=== PATIENT | female | born 1975 | race Caucasian/White ===

== ENCOUNTER 2016-07-30 15:01 | Emergency (ER) | payer BC, MEDICAID ==
[~2016-07-30] VITALS: Wt 51.5 kg
[~2016-07-30 15:01] MED LIST: PREN1TAB9
[2016-07-30] MEDS ORDERED: RANI150T9 PO (15:31)
[2016-07-30] MEDS ORDERED: BEN50 PO (15:31)
[2016-07-30] MEDS ORDERED: PRED20TA PO (15:31)
--- NOTE | 2016-07-30 15:56 | ERD ---
ER Documentation Chief Complaint Date/Time DATE: 07/30/16 TIME: 15:54 Chief Complaint GENERALIZED RASH FOR THE PAST FEW DAYS. NO STRIDOR OR SOB NOTED. HPI 40-year-old female comes in with a generalized rash she has had for 3 days, patient states that she recently took amoxicillin that she was having dental pain. She took that for approximately a week and began to have a rash that is generalized, pruritic, she has not tried anything for this type of calamine lotion. She states that she ate some to his daughter's the night that it started, she has had this before in the past, has never had any throaty according allergies in the past. No shortness of breath with this. ROS All systems reviewed and are negative except as per history of present illness. Medications Home Meds Active Scripts Diphenhydramine Hcl* (Benadryl*) 50 Mg Cap, 50 MG PO Q6 Y for ITCHING, #30 CAP Prov:JUANITA SHIRLEY PA-C 07/30/16 Ranitidine Hcl* (Zantac*) 150 Mg Tablet, 150 MG PO BID Y for rash, #10 TAB Prov:JUANITA SHIRLEY PA-C 07/30/16 Prednisone* (Prednisone*) 20 Mg Tab, 40 MG PO DAILY for 5 Days, TAB Prov:JUANITA SHIRLEY PA-C 07/30/16 Reported Medications Vits W-Ca,Fe,Fa(<1MG) ( #2) 1 Tab Tablet 02/01/13 Allergies Allergies: Coded Allergies: No Known Allergy (Unverified , 09/06/13) PMhx/Soc History of Surgery: No Anesthesia Reaction: No Hx Neurological Disorder: No Hx Alcohol Use: No Hx Substance Use: No Hx Tobacco Use: No Physical Exam Vitals Vital Signs Date Time Temp Pulse Resp B/P Pulse Ox O2 Delivery O2 Flow Rate FiO2 07/30/16 15:13 98.8 69 20 111/64 98 Physical Exam General: Well-developed, well-nourished. The patient appears in no acute distress. HEENT: Head is normocephalic, atraumatic. No scleral icterus. Pupils are equal , round, and reactive. Oral mucous membranes are moist. No pharyngeal erythema. Neck: Supple. Nontender. Lungs: Clear to auscultation. Normal air movement. Heart: Regular rate and rhythm. S1 and S2 are normal. No murmurs, gallops, or rubs. Abdomen: Soft, nontender, nondistended. Bowel sounds are normoactive. Extremities: No clubbing or cyanosis. Normal pulses. Moving extremities x 4. No weakness. Neurologic: Alert and oriented 3. No focal deficits. Skin: Generalized rash, there are excoriations in her thighs, other areas have hives on her trunk Procedures/MDM 40-year-old female comes in with a generalized allergic reaction, without evidence of shortness of breath or any respiratory distress. She does have hives in various areas as well as excoriations from scratching, there is no evidence of any infectious process. She has been taking amoxicillin for the past week, I have asked her to discontinue this as it may be a source of her allergy reaction. Patient's allergic symptoms have stabilized while they have been evaluated in the department without evidence of persistent systemic reaction. Patient is healthy and capable of treating and responding to rebound reactions. Patient appropriate for outpatient allergy work up and treatment. Departure Diagnosis: Primary Impression: Allergic reaction Condition: Good Patient Instructions: Allergic Reaction, Other (General) Additional Instructions: Llame al doctor MAANA y arnoldo diane KIRK PARA DENTRO DE 1-2 CORREA.Dgale a la secretaria que nosotros le instruimos hacer esta kirk.Avise o llame si perez condicin se empeora antes de la kirk. Regresa aqui si peor o no mejor. JUANITA SHIRLEY PA-C Jul 30, 2016 15:56
== END 2016-07-30 15:27 | disposition home or self-care (01) ==
LOC: E/R 15:01
DX: R21 Rash and other nonspecific skin eruption (principal)
CPT/HCPCS: 99283

== ENCOUNTER 2018-12-05 06:17 | Day surgery (SDC) | payer BC ==
[2018-12-05] VITALS (13 sets, daily range): BP systolic 85–106; BP diastolic 53–65; PULSE 60–82; RESP 13–18; Ht 137.2 cm; Wt 51.4 kg
[~2018-12-05] VITALS: Ht 137.2 cm; Wt 51.4 kg
[~2018-12-05 06:17] MED LIST changes: +BEN50 PO; +CEFAZOLIN 2 GM/50 ML (PMX) 50 ML IVPB ONE; +PRED20TA PO; +RANI150T35 PO; +SOD CHLORIDE 0.9% 1,000 ML IV SCH
[2018-12-05] MEDS ORDERED: LEVO25TA50 PO (06:49)
[2018-12-05] MEDS ORDERED: LORA10TA3 PO (06:50)
--- NOTE | 2018-12-05 07:31 | PREAC ---
Date/Time of Note Date/Time of Note DATE: 12/05/18 TIME: 07:30 Anesthesia Eval and Record Evaluation Time Pre-Procedure Interview DATE: 12/05/18 TIME: 07:30 Age 43 Sex female NPO: 8 hrs Preoperative diagnosis Right back mass Planned procedure Excision of mass Past Medical History Past Medical History: Includes Endo: Hypothyroid Surgery & Anesthesia Issues No known issue Meds Anticoagulation: No Beta Marilyn within 24 hr: No Reason Beta Marilyn not given: Pt. not on B-Marilyn Reported Medications Loratadine* (Loratadine*) 10 Mg Tablet, 10 MG PO DAILY, #30 TAB 12/05/18 Levothyroxine Sodium* (Levoxyl*) 25 Mcg Tablet, 25 MCG PO BEFORE BREAKFAST, #30 TAB 12/05/18 Discontinued Reported Medications Vits W-Ca,Fe,Fa(<1MG) ( #2) 1 Tab Tablet 02/01/13 Discontinued Scripts Diphenhydramine Hcl* (Benadryl*) 50 Mg Cap, 50 MG PO Q6 PRN for ITCHING, #30 CAP Prov:JUANITA SHIRLEY PA-C 07/30/16 Ranitidine Hcl* (Zantac*) 150 Mg Tablet, 150 MG PO BID PRN for rash, #10 TAB Prov:JUANITA SHIRLEY PA-C 07/30/16 Prednisone* (Prednisone*) 20 Mg Tab, 40 MG PO DAILY for 5 Days, TAB Prov:JUANITA SHIRLEY PA-C 07/30/16 Current Medications Sodium Chloride 1,000 ml @ 75 mls/hr [id number] IV ; Start 12/05/18 at 06:00; Stop 12/05/18 at 19:19 Meds reviewed: Yes Allergies Coded Allergies: No Known Allergy (Unverified , 12/05/18) Allergies Reviewed: Yes Labs/Studies Labs Reviewed: Reviewed by anesthesiologist Result Diagram: 12/05/18 0642 12/05/18 0642 Laboratory Tests 12/05/18 06:42 test: Negative Pre-procedure Exam Last vitals Vital Signs Date Temp Pulse Resp B/P (MAP) Pulse Ox O2 O2 Flow FiO2 Time Delivery Rate 12/05/18 97.7 82 18 106/62 96 Room Air 06:55 (77) Airway: Adequate mouth opening Mallampati: Mallampati I Teeth: Normal Lung: Normal Heart: Normal ASA Physical Status ASA physical status: 2 Emergency: None Planned Anesthetic General/MAC: LMA Planned Pain Management Parenteral pain med Pre-operative Attestations Prior to commencing anesthesia and surgery, the patient was re-evaluated, there was verification of: *The patient's identity *The results of appropriate recent lab work and preoperative vital signs *The above evaluation not changing prior to induction *Anesthetic plan, risk benefits, alternative and complications discussed with patient/family; questions answered; patient/family understands, accepts and wishes to proceed. TIMO SHIRLEY MD Dec 05, 2018 07:31
[2018-12-05] MEDS ORDERED: BUPIVACAINE 0.25% (MPF) 30 ML INJ ONE (07:45)
[2018-12-05] MEDS ORDERED: ONDANSETRON 4 MG INJ ONE (07:55)
[2018-12-05] MEDS ORDERED: METOCLOPRAMIDE 10 MG INJ ONE (07:55)
[2018-12-05] MEDS ORDERED: LIDOCAINE 2% (SDV) 5 ML INJ ONE (07:55)
[2018-12-05] MEDS ORDERED: CEFAZOLIN 1 GM INJ ONE (07:55)
[2018-12-05] MEDS ORDERED: MEPERIDINE 100 MG INJ ONE (07:55)
[2018-12-05] MEDS ORDERED: PROPOFOL 20 ML ONE (07:55)
[2018-12-05] MEDS ORDERED: MEPERIDINE 25 MG INJ IV PRN (09:00)
[2018-12-05] MEDS ORDERED: DIPHENHYDRAMINE 50 MG INJ IV PRN (09:00)
[2018-12-05] MEDS ORDERED: METOCLOPRAMIDE 10 MG INJ IV PRN (09:00)
[2018-12-05] MEDS ORDERED: FENTAnyl 50 MCG/ML VIAL IV PRN ×3 (09:00)
[2018-12-05] MEDS ORDERED: HYDROmorphONE 1 MG/5 ML IV SYRINGE IV PRN ×3 (09:00)
[2018-12-05] MEDS ORDERED: OXYCODONE/ACETAMINOPHEN (5/325) TAB PO PRN ×2 (09:00)
[2018-12-05] MEDS ORDERED: MIDAZOLAM 1 MG/ML 2 ML INJ IV PRN (09:00)
[2018-12-05] MEDS ORDERED: ONDANSETRON 4 MG INJ IV PRN (09:00)
--- NOTE | 2018-12-05 09:13 | OPR ---
Date/Time of Note Date/Time of Note DATE: 12/05/18 TIME: 09:11 Operative Report Procedure Date: Dec 05, 2018 Preoperative Diagnosis back mass Postoperative Diagnosis same Operation/Procedure Performed 1. excision of right back mass 5 cm mass 5 cm incision 2. localized adjacent tissue transfer with the use of skin flaps 10 sq cm defect of the back 3. therapeutic injection of subcutaneous local anesthesia Surgeon see signature line Design Analyst none Anesthesia Type: general Estimated Blood Loss: 0 - 10 ml's Transfusion none Specimen back mass surgical markings single short superior single long right latera skin posterior Grafts/Implants none Complications none Pt Condition Post Procedure: stable Indications This is a 43-year-old female with symptomatic right back mass. She requests surgical excision. Risks alternatives benefits and personal were discussed the patient. Patient expressed understanding and consents to the operation. Procedure Description Patient is taken to the OR and prepped and draped in usual sterile fashion. Surgical time was performed. IV antibiotics given. Elliptical incision was made at the 15 blade over the back mass. Dissection with cautery skin onto the mass and the mass was circumferentially excised including the skin as part of the lesion is protruding and irregular. Good hemostasis established. Surgical markings are a single short superior single long right lateral and the skin is facing posteriorly. Due to tissue defect localized adjacent to his transfer with use of skin flaps was performed. Multilayer closed with interrupted 3-0 Vicryl and skin teddy. Therapeutic contains local anesthesia was injected at the incision site. Dry dressings were applied. Garland SARABIA Dec 05, 2018 09:13
[2018-12-05] MEDS ORDERED: HYDROCODONE/APAP (5/325) TAB PO ONE (10:00)
--- NOTE | 2018-12-05 10:04 | PAC ---
Date/Time of Note Date/Time of Note DATE: 12/05/18 TIME: 10:03 Post-Anesthesia Notes Post-Anesthesia Note Last documented vital signs Vital Signs Date Temp Pulse Resp B/P (MAP) Pulse Ox O2 O2 Flow FiO2 Time Delivery Rate 12/05/18 69 15 91/65 (74) 98 Room Air 09:58 12/05/18 98.1 09:20 Activity: WNL Respiratory function: WNL Cardiovascular function: WNL Mental status: Baseline Pain reasonably controlled: Yes Hydration appropriate: Yes Nausea/Vomiting absent: Yes Comments BT: 98.4 TIMO SHIRLEY MD Dec 05, 2018 10:04
== END 2018-12-05 10:54 | disposition home or self-care (01) ==
LOC: SDS 06:17
PROVIDERS: ATTEND Surgery
DX: D22.5 Melanocytic nevi of trunk (principal); E03.9 Hypothyroidism, unspecified
CPT/HCPCS: 14000; 80053; 85025; 85610; 85730; 88307; J0690; J2175; J2405; J2765; Z7512; Z7610

== ENCOUNTER 2019-02-23 12:56 | Emergency (ER) | payer BC ==
[~2019-02-23] VITALS: Ht 137.2 cm; Wt 51.8 kg
[~2019-02-23 12:56] MED LIST changes: -BEN50 PO; -CEFAZOLIN 2 GM/50 ML (PMX) 50 ML IVPB ONE; +DIPH25CA6 PO; +LEVO25TA50 PO; +LORA10CA PO; +LORA10TA3 PO; -PRED20TA PO; -PREN1TAB9; -RANI150T35 PO; -SOD CHLORIDE 0.9% 1,000 ML IV SCH
[2019-02-23 12:59] VITALS: BP 128/80; PULSE 69; RESP 18; Ht 137.2 cm; Wt 51.8 kg
== END 2019-02-23 13:53 | disposition home or self-care (01) ==
LOC: FTE 12:56
DX: R21 Rash and other nonspecific skin eruption (principal); E03.9 Hypothyroidism, unspecified
CPT/HCPCS: 99282